=== PATIENT | female | born 1940 | race Asian ===

== ENCOUNTER 2016-09-21 16:19 | Emergency (ER) | payer OTHER ==
[~2016-09-21 16:19] MED LIST: ANT12.5 PO; ASPIR 8181 MG PO; CELEBREX200 MG PO; COL100 PO; DIOVAN80 MG PO; DONEPEZIL HYDRO10 M2 PO; ESCITALOPRAM20 M1 PO; LYRICA50 M1 PO; METFORMIN ER500 M1 PO; METOPROLOL SUCC25 M1 PO; NEURONTIN400 MG PO; OMEPRAZOLE DR20 M1 PO; SIMVASTATIN20 M1 PO; ULTRAM50 MG PO; [UNRECOGNIZED DRUG - OTHER] PO
[2016-09-21 19:32] VITALS: BP 129/76
== END 2016-09-21 19:32 | disposition home or self-care (01) ==
LOC: ED 16:19
DX: T63.441A Toxic effect of venom of bees, accidental (unintentional), initial encounter (principal); T78.40XA Allergy, unspecified, initial encounter; Y92.89 Other specified places as the place of occurrence of the external cause
CPT/HCPCS: J7512